=== PATIENT | male | born 1965 | race Caucasian/White ===

== ENCOUNTER 2018-11-04 08:54 | Emergency (ER) | payer MEDICAID ==
[~2018-11-04] VITALS: Ht 180.3 cm; Wt 89.2 kg
[2018-11-04 09:23] VITALS: BP 134/75
--- NOTE | 2018-11-04 10:10 | NUR ---
pt to room now
== END 2018-11-04 11:20 | disposition home or self-care (01) ==
LOC: ED 11:14
DX: J20.8 Acute bronchitis due to other specified organisms (principal); F17.200 Nicotine dependence, unspecified, uncomplicated
CPT/HCPCS: 71046; 99283

== ENCOUNTER 2019-12-25 08:41 | Emergency (ER) | payer MEDICAID ==
[~2019-12-25] VITALS: Ht 180.3 cm; Wt 94.1 kg
[2019-12-25 08:44] VITALS: BP 119/91
--- NOTE | 2019-12-25 09:03 | NUR ---
PT HERE WITH C/O SCABIES. PT AT D/C DESK AND SEEN BY
--- NOTE | 2019-12-25 09:06 | NUR ---
Patient/Caregiver given discharge instructions and they have confirmed that they understand the instructions. Patient ambulatory with steady gait.
== END 2019-12-25 09:08 | disposition home or self-care (01) ==
LOC: ED 08:51
DX: L03.312 Cellulitis of back [any part except buttock and flank] (principal)
CPT/HCPCS: 99283

== ENCOUNTER 2020-01-14 14:29 | Emergency (ER) | payer MEDICAID ==
[~2020-01-14] VITALS: Ht 180.3 cm; Wt 96.9 kg
[2020-01-14 14:33] VITALS: BP 150/91
--- NOTE | 2020-01-14 15:07 | NUR ---
PT MAKING STATEMENTS THAT HE CAN'T FILL HIS RX FOR FREE, AND THAT HE WANTS TO SPEAK TO A SWITCH REPAIRER ABOUT HIS PROBLEM AFTER BEING EDUCATED THAT WE ARE UNABLE TO PROVIDE D/C MEDS FOR FREE. PT IN BED, NO SIGNS OF DISTRESS, PT TOLD THAT [facility]P WILL COME TO ASSESS, PT AGREED TO WAIT TO TALK TO SWITCH REPAIRER AFTER ASSESSMENT.
== END 2020-01-14 15:22 | disposition home or self-care (01) ==
LOC: MERGE 14:29 → ED 15:16
DX: B86 Scabies (principal)
CPT/HCPCS: 99283

== ENCOUNTER 2020-02-15 08:06 | Emergency (ER) | payer MEDICAID ==
[~2020-02-15] VITALS: Ht 180.3 cm; Wt 102.0 kg
[2020-02-15 08:08] VITALS: BP 137/85
--- NOTE | 2020-02-15 08:25 | NUR ---
pt educated on proper medication use and how to wash clothes and bedding and the necessity of a hot shower. pt provided clean clothes (jeans, sweatshirt and socks) to help with decontamination. pt educated to keep clean bag closed until he has showered. pt refused and proceeded to open bag because "i'm worried about the clothes i wear. i want to know what they look like." pt given dc paperwork and escorted to exit by another rn.
== END 2020-02-15 08:29 | disposition home or self-care (01) ==
LOC: ED 08:25
DX: B86 Scabies (principal); Z76.0 Encounter for issue of repeat prescription; Z91.19 Patient's noncompliance with other medical treatment and regimen; F17.290 Nicotine dependence, other tobacco product, uncomplicated
CPT/HCPCS: 99281

== ENCOUNTER 2020-04-23 06:30 | Emergency (ER) | payer MEDICAID ==
[~2020-04-23] VITALS: Ht 180.3 cm; Wt 98.0 kg
[2020-04-23 06:38] VITALS: BP 117/79
== END 2020-04-23 07:29 | disposition home or self-care (01) ==
LOC: ED 06:34
DX: S50.861A Insect bite (nonvenomous) of right forearm, initial encounter (principal); S50.862A Insect bite (nonvenomous) of left forearm, initial encounter; S80.862A Insect bite (nonvenomous), left lower leg, initial encounter; S80.861A Insect bite (nonvenomous), right lower leg, initial encounter; W57.XXXA Bitten or stung by nonvenomous insect and other nonvenomous arthropods, initial encounter; Y93.89 Activity, other specified; Y92.89 Other specified places as the place of occurrence of the external cause; Y99.8 Other external cause status
CPT/HCPCS: 99283

== ENCOUNTER 2020-05-02 06:31 | Emergency (ER) | payer MEDICAID ==
[~2020-05-02] VITALS: Ht 180.3 cm; Wt 87.9 kg
[2020-05-02 07:33] VITALS: BP 121/54
== END 2020-05-02 07:35 | disposition home or self-care (01) ==
LOC: ED 07:21
DX: T14.8XXA Other injury of unspecified body region, initial encounter (principal); F17.200 Nicotine dependence, unspecified, uncomplicated; W57.XXXA Bitten or stung by nonvenomous insect and other nonvenomous arthropods, initial encounter; Y93.89 Activity, other specified; Y92.89 Other specified places as the place of occurrence of the external cause; Y99.8 Other external cause status
CPT/HCPCS: 99283

== ENCOUNTER 2020-05-09 06:10 | Emergency (ER) | payer MEDICAID ==
[~2020-05-09] VITALS: Ht 180.3 cm; Wt 95.0 kg
[2020-05-09 06:12] VITALS: BP 137/61
[2020-05-09] MEDS: IVERMECTIN 3 MG TAB PO ONE ×2 (07:52→07:53)
[2020-05-09] MEDS ORDERED: IVERMECTIN 3 MG TAB PO ONE (08:30)
== END 2020-05-09 07:55 | disposition home or self-care (01) ==
LOC: ED 06:22
DX: B86 Scabies (principal); L29.9 Pruritus, unspecified
CPT/HCPCS: 99283

== ENCOUNTER 2021-02-07 10:14 | Emergency (ER) | payer MEDICAID ==
[~2021-02-07] VITALS: Ht 182.9 cm; Wt 101.6 kg
[2021-02-07 10:24] VITALS: BP 156/91
== END 2021-02-07 11:24 | disposition home or self-care (01) ==
LOC: ED 10:56
DX: L03.312 Cellulitis of back [any part except buttock and flank] (principal); L03.113 Cellulitis of right upper limb; L03.116 Cellulitis of left lower limb; L03.115 Cellulitis of right lower limb; F17.200 Nicotine dependence, unspecified, uncomplicated
CPT/HCPCS: 99283

== ENCOUNTER 2021-06-17 06:27 | Emergency (ER) | payer MEDICAID ==
[~2021-06-17] VITALS: Ht 180.3 cm; Wt 104.5 kg
--- NOTE | 2021-06-17 06:32 | NUR ---
PT [place] WITH [employer]ER [employer] INSPECTOR TESTER AT BEDSIDE, PT STATED TO THIS RN THAT HE FEELS SOB BUT WHEN MD CAME INTO ROOM PT STATED HE DOES NOT FEEL SHORT OF BREATH, PT SAYS HE HAS BEEN FEELING THIS WAY FOR 2 WEEKS, PT STATES HE HAS NO MEDICAL CONDITIONS, DOES NOT TAKE MEDS, AND HAS NO ALLERGIES TO MEDICATIONS, NAD AT THIS TIME, MD AT BEDSIDE TO DISCUSS POC, [employer] INSPECTOR TESTER AT BEDSIDE
--- NOTE | 2021-06-17 06:39 | NUR ---
[facility] accompanying patient as he is in custody. Per [employer] request, call [phone] when patient is prepped for d/c for transport. If patient is non-compliant and leaves, still call [employer] and [facility] will handle it.
[2021-06-17 07:36] VITALS: BP 115/82
== END 2021-06-17 07:39 ==
LOC: ED 06:33
DX: J02.8 Acute pharyngitis due to other specified organisms (principal); B97.89 Other viral agents as the cause of diseases classified elsewhere; R06.02 Shortness of breath; F17.210 Nicotine dependence, cigarettes, uncomplicated
CPT/HCPCS: 87081; 87880; 99283